=== PATIENT | female | born 1980 | race Caucasian/White ===

== ENCOUNTER → 2017-03-05 | Outpatient (CLI) | payer OTHER ==
[~2017-03-05] MED LIST: ATARAX,VISTARIL50 MG PO; AUGMENTIN 875875 MG PO; BACTRIM DS 8001 TA1 PO; BACTRIM DS 8001 TAB PO; CARBIDOPA/LEVOD1 TA1 PO; CELEXA20 MG PO; CITALOPRAM HYDR20 MG PO; CLINDAMYCIN HC300 MG PO; GABAPENTIN300 MG PO; HYDROCODONE BIT1 T11 PO; IBU800 MG PO; IMODIUM A-D2 M2 PO; KEFLEX500 MG PO; KROGER NIC21 MG/24 H T; MOTRIN800 MG PO; NEURONTIN300 MG PO; PERCOCET 325 MG1 TA2 PO; VISTARIL25 MG PO; VISTARIL50 MG PO; ZOFRAN ODT4 MG SL; ZUBSOLV1 TA2 SL
== END | disposition home or self-care (01) ==
LOC: RESCLI 00:42
DX: G43.009 Migraine without aura, not intractable, without status migrainosus (principal); R11.2 Nausea with vomiting, unspecified; R56.9 Unspecified convulsions; F41.9 Anxiety disorder, unspecified

== ENCOUNTER → 2017-12-31 | Outpatient (CLI) | payer OTHER ==
[2017-12-31 11:12] LABS: BASO % 0.5 % (0.0-1.0); EOS # 0.1 10*3/uL (0.0-0.4); EOS % 1.5 % (1.0-4.0); HEMATOCRIT 34.5 % (37.0-47.0); HEMOGLOBIN 11.3 g/dl (12.0-16.0); LYMPH # 2.8 10*3/uL (1.3-4.4); MEAN CELL VOLUME 80.4 fl (81.0-99.0); MEAN CORPUSCULAR HGB 26.3 pg (27.0-31.0); MEAN CORPUSCULAR HGB CONC 32.8 g/dl (33.0-37.0); MEAN PLATELET VOLUME 8.9 fl (9.6-12.3); MONO # 0.5 10*3/uL (0.1-1.0); MONO % 6.2 % (3.0-9.0); NEUT # 4.4 10*3/uL (2.3-7.9); NEUT % 55.7 % (47.0-73.0); PLATELET COUNT AUTOMATED 316 10*3/uL (130-400); RED BLOOD COUNT 4.29 10*6/uL (4.10-5.10); RED CELL DISTRI WIDTH 14.5 % (0-14.5); WHITE BLOOD COUNT 7.9 10*3/uL (4.8-10.8)
[2017-12-31 11:47] LABS: ALBUMIN 3.4 gm/dl (3.1-4.5); ALKALINE PHOSPHATASE 123 U/L (45-117); BUN 11 mg/dl (7-24); CHLORIDE 103 mmol/L (98-107); CHOLESTEROL 144 mg/dL (<200); CREATININE 0.82 mg/dL (0.55-1.02); HDL CHOLESTEROL 39 mg/dl (40-60); LDL CHOLESTEROL 89 mg/dL (9-159); POTASSIUM 3.9 mmol/L (3.5-5.1); SGOT/AST 67 IU/L (3-35); SODIUM 136 mmol/L (136-145); TRIGLYCERIDES 80 mg/dl (<150); VLDL CHOLESTEROL 16 mg/dL (6-40)
[2017-12-31 11:55] LABS: SGPT/ALT 64 U/L (12-78)
[2017-12-31 12:23] LABS: VITAMIN D, 25-HYDROXY 8.8 ng/mL (30-100)
== END | disposition home or self-care (01) ==
LOC: LAB 10:44
DX: E55.9 Vitamin D deficiency, unspecified (principal); R07.9 Chest pain, unspecified; Z79.899 Other long term (current) drug therapy

== ENCOUNTER 2018-06-02 18:31 | Emergency (ER) | payer OTHER ==
[~2018-06-02] VITALS: Ht 165.1 cm; Wt 62.6 kg
[~2018-06-02 18:31] MED LIST changes: -AUGMENTIN 875875 MG PO; -BACTRIM DS 8001 TA1 PO; -BACTRIM DS 8001 TAB PO; -CARBIDOPA/LEVOD1 TA1 PO; -CELEXA20 MG PO; -CITALOPRAM HYDR20 MG PO; -CLINDAMYCIN HC300 MG PO; -GABAPENTIN300 MG PO; -HYDROCODONE BIT1 T11 PO; -IBU800 MG PO; -KEFLEX500 MG PO; -KROGER NIC21 MG/24 H T; -MOTRIN800 MG PO; -NEURONTIN300 MG PO; -PERCOCET 325 MG1 TA2 PO; -ZUBSOLV1 TA2 SL
[2018-06-02 18:58] LABS: BILIRUBIN NEGATIVE (NEGATIVE); BLOOD NEGATIVE (NEGATIVE); CLARITY CLEAR (CLEAR); COLOR YELLOW (YELLOW); GLUCOSE NEGATIVE (NEGATIVE); KETONE TRACE (NEGATIVE); LEUKO ESTERASE TRACE (NEGATIVE); NITRITE NEGATIVE (NEGATIVE); SPECIFIC GRAVITY >= 1.030 (1.005-1.030); UROBILINOGEN 0.2 E.U./dl (0.2-1.0)
[2018-06-02 19:09] LABS: BACTERIA 1+; WBC 21-30 wbc/hpf (0-5)
== END 2018-06-02 19:28 | disposition home or self-care (01) ==
LOC: ED 18:31
PROVIDERS: Physician Assistant
DX: Z11.3 Encounter for screening for infections with a predominantly sexual mode of transmission (principal); A59.8 Trichomoniasis of other sites; F17.200 Nicotine dependence, unspecified, uncomplicated; F12.90 Cannabis use, unspecified, uncomplicated; Z98.51 Tubal ligation status; Z88.6 Allergy status to analgesic agent; Z79.899 Other long term (current) drug therapy

== ENCOUNTER 2020-04-20 16:06 | Emergency (ER) | payer OTHER ==
[~2020-04-20] VITALS: Wt 72.6 kg
[~2020-04-20 16:06] MED LIST changes: +AUGMENTIN 875875 MG PO; +BACTRIM DS 8001 TA1 PO; +BACTRIM DS 8001 TAB PO; +CARBIDOPA/LEVOD1 TA1 PO; +CELEXA20 MG PO; +CITALOPRAM HYDR20 MG PO; +CLINDAMYCIN HC300 MG PO; +GABAPENTIN300 MG PO; +HYDROCODONE BIT1 T11 PO; +IBU800 MG PO; +KEFLEX500 MG PO; +KROGER NIC21 MG/24 H T; +MOTRIN800 MG PO; +NEURONTIN300 MG PO; +PERCOCET 325 MG1 TA2 PO; +ZUBSOLV1 TA2 SL
[2020-04-20 16:14] VITALS: BP 132/110
== END 2020-04-20 16:55 | disposition left against medical advice (07) ==
LOC: ED 16:06
DX: T40.601A Poisoning by unspecified narcotics, accidental (unintentional), initial encounter (principal); F32.9 Major depressive disorder, single episode, unspecified; F41.9 Anxiety disorder, unspecified; Z88.8 Allergy status to other drugs, medicaments and biological substances; Z79.899 Other long term (current) drug therapy; Y92.89 Other specified places as the place of occurrence of the external cause

== ENCOUNTER → 2020-07-28 | Outpatient (CLI) | payer OTHER ==
[2020-07-30 00:08] LABS: HCV LOG10 7.097 (.); HCV RNA (INTERNATION UNIT) 12500000 IU/mL (.); HEPATITIS C QUANTITATION See Final Results IU/mL (.)
== END | disposition home or self-care (01) ==
LOC: LAB 13:27
PROVIDERS: ATTEND Nurse Practitioner Primary Care
DX: R76.8 Other specified abnormal immunological findings in serum (principal)

== ENCOUNTER → 2020-08-12 | Outpatient (CLI) | payer OTHER | END | disposition home or self-care (01) | LOC: US 09:28 | PROVIDERS: ATTEND Nurse Practitioner Primary Care | DX: R10.13 Epigastric pain (principal); R14.0 Abdominal distension (gaseous); R19.7 Diarrhea, unspecified ==

== ENCOUNTER 2020-08-24 15:11 | Emergency (ER) | payer OTHER ==
[2020-08-24 15:11] VITALS: BP 139/94
[2020-08-24 15:59] LABS: BILIRUBIN Negative (Negative); BLOOD Negative (Negative); CLARITY Clear (Clear); COLOR Yellow (Yellow); GLUCOSE Negative (Negative); KETONE Negative (Negative); LEUKO ESTERASE Negative (Negative); NITRITE Negative (Negative); PH 5.5 (4.5-8.0); SPECIFIC GRAVITY <= 1.005 (1.001-1.030); UROBILINOGEN 0.2 E.U./dl (0.0-1.0)
[2020-08-24 16:07] LABS: URINE AMPHETAMINES > 1000 (1000ng/ml); URINE BARBITURATES < 200 (200ng/ml); URINE BENZODIAZEPINES < 200 (200ng/ml); URINE CANNABINOIDS (THC) > 50 (50ng/ml); URINE COCAINE < 300 (300ng/ml); URINE METHADONE < 300 (300ng/ml); URINE OPIATES < 300 (300ng/ml)
[2020-08-24 16:12] LABS: WBC 0-2 wbc/hpf (0-5)
[2020-08-24 16:13] LABS: URINE PHENCYCLIDINE < 25 (25ng/ml)
[2020-08-24] MEDS ORDERED: LAMOTRIGINE200 MG PO (16:45)
== END 2020-08-24 17:08 | disposition home or self-care (01) ==
LOC: ED 15:11
PROVIDERS: Physician Assistant
DX: Z76.0 Encounter for issue of repeat prescription (principal); F32.9 Major depressive disorder, single episode, unspecified; F41.9 Anxiety disorder, unspecified; Z88.8 Allergy status to other drugs, medicaments and biological substances

== ENCOUNTER 2020-08-29 11:11 | Emergency (ER) | payer OTHER ==
[~2020-08-29] VITALS: Ht 165.1 cm; Wt 74.4 kg
[~2020-08-29 11:11] MED LIST changes: +LAMOTRIGINE200 MG PO
[2020-08-29 11:23] VITALS: BP 151/93
[2020-08-29] MEDS ORDERED: DOXYCYCLINE100 M3 PO (12:02)
[2020-08-29 12:51] LABS: BILIRUBIN Negative (Negative); BLOOD Negative (Negative); CLARITY Clear (Clear); COLOR Yellow (Yellow); GLUCOSE Negative (Negative); KETONE Negative (Negative); LEUKO ESTERASE Negative (Negative); NITRITE Negative (Negative); SPECIFIC GRAVITY <= 1.005 (1.001-1.030)
[2020-08-29 13:01] LABS: EPITHELIAL CELLS 16-20; RBC 0-2 rbc/hpf (0-2); WBC 0-2 wbc/hpf (0-5)
== END 2020-08-29 13:27 | disposition home or self-care (01) ==
LOC: ED 11:11
PROVIDERS: Physician Assistant
DX: N89.8 Other specified noninflammatory disorders of vagina (principal); Z20.2 Contact with and (suspected) exposure to infections with a predominantly sexual mode of transmission; Z88.6 Allergy status to analgesic agent; Z87.891 Personal history of nicotine dependence

== ENCOUNTER 2023-01-31 14:20 | Emergency (ER) | payer OTHER ==
[~2023-01-31] VITALS: Ht 165.1 cm; Wt 54.4 kg
[~2023-01-31 14:20] MED LIST changes: +DOXYCYCLINE100 M3 PO
[2023-01-31 14:37] VITALS: BP 129/85
[2023-01-31 15:29] LABS: BASO % 0.4 % (0.0-1.0); EOS # 0.1 10*3/uL (0.0-0.4); EOS % 1.1 % (1.0-4.0); HEMATOCRIT 32.4 % (37.0-47.0); LYMPH # 1.6 10*3/uL (1.3-4.4); LYMPH % 19.7 % (27.0-41.0); MEAN CELL VOLUME 76.1 fl (81.0-99.0); MEAN CORPUSCULAR HGB 23.5 pg (27.0-31.0); MEAN CORPUSCULAR HGB CONC 30.9 g/dl (33.0-37.0); MEAN PLATELET VOLUME 9.2 fl (9.6-12.3); MONO # 0.5 10*3/uL (0.1-1.0); MONO % 6.1 % (3.0-9.0); NEUT # 5.9 10*3/uL (2.3-7.9); NEUT % 70.9 % (47.0-73.0); PLATELET COUNT AUTOMATED 259 10*3/uL (130-400); RED BLOOD COUNT 4.26 10*6/uL (4.10-5.10); RED CELL DISTRI WIDTH 17.6 % (0-14.5); WHITE BLOOD COUNT 8.2 10*3/uL (4.8-10.8)
[2023-01-31 15:43] LABS: ACT PARTIAL THROMBO TIME 29.6 SECONDS (20.0-32.1)
[2023-01-31 15:50] LABS: ALKALINE PHOSPHATASE 52 U/L (46-116); BETA-HCG, QUANT < 3.0 mIU/mL (0-10); BUN 7 mg/dl (9-23); CHLORIDE 101 mmol/L (98-107); LIPASE 15 U/L (12-53); POTASSIUM 3.8 mmol/L (3.4-5.1); SGPT/ALT 21 U/L (10-49); TOTAL PROTEIN 4.3 gm/dL (6.0-8.0)
[2023-01-31 15:57] LABS: ETHYL ALCOHOL < 3.0 mg/dl (<3)
== END 2023-01-31 17:07 ==
LOC: ED
PROVIDERS: Emergency Medicine
DX: M25.552 Pain in left hip (principal); Z88.6 Allergy status to analgesic agent; Z98.51 Tubal ligation status; W18.39XA Other fall on same level, initial encounter; Y93.89 Activity, other specified; Y92.89 Other specified places as the place of occurrence of the external cause; Y99.8 Other external cause status

== ENCOUNTER 2025-04-14 22:29 | Emergency (ER) | payer OTHER ==
[~2025-04-14] VITALS: Ht 152.4 cm; Wt 70.1 kg
[2025-04-14 22:53] VITALS: BP 139/102
[2025-04-14 22:58] LABS: BILIRUBIN Negative (Negative); BLOOD Negative (Negative); CLARITY Clear (Clear); COLOR Yellow (Yellow); GLUCOSE Negative (Negative); KETONE Negative (Negative); LEUKO ESTERASE Negative (Negative); NITRITE Negative (Negative); SPECIFIC GRAVITY <= 1.005 (1.001-1.030); UROBILINOGEN 0.2 E.U./dl (0.0-1.0)
[2025-04-14 23:07] LABS: URINE AMPHETAMINES Positive (1000ng/ml); URINE BARBITURATES Negative (200ng/ml); URINE BENZODIAZEPINES Negative (200ng/ml); URINE CANNABINOIDS (THC) Positive (50ng/ml); URINE COCAINE Positive (300ng/ml); URINE METHADONE Negative (300ng/ml); URINE OPIATES Negative (300ng/ml); URINE PHENCYCLIDINE Negative (25ng/ml)
[2025-04-14 23:14] LABS: BASO # 0.1 10*3/uL (0.0-0.1); BASO % 0.7 % (0.0-1.0); EOS # 0.2 10*3/uL (0.0-0.4); EOS % 1.8 % (1.0-4.0); HEMATOCRIT 35.6 % (37.0-47.0); MEAN CELL VOLUME 83.2 fl (81.0-99.0); MEAN CORPUSCULAR HGB 27.1 pg (27.0-31.0); MEAN CORPUSCULAR HGB CONC 32.6 g/dl (33.0-37.0); MEAN PLATELET VOLUME 9.5 fl (9.6-12.3); MONO # 0.7 10*3/uL (0.1-1.0); MONO % 8.4 % (3.0-9.0); NEUT # 4.8 10*3/uL (2.3-7.9); NEUT % 59.7 % (47.0-73.0); PLATELET COUNT AUTOMATED 306 10*3/uL (130-400); RED BLOOD COUNT 4.28 10*6/uL (4.10-5.10); RED CELL DISTRI WIDTH 13.4 % (0-14.5); WHITE BLOOD COUNT 8.1 10*3/uL (4.8-10.8)
[2025-04-14 23:20] LABS: RBC 0-2 rbc/hpf (0-2); WBC 0-2 wbc/hpf (0-5)
[2025-04-14 23:38] LABS: ALKALINE PHOSPHATASE 116 U/L (46-116); BUN 12 mg/dl (9-23); CHLORIDE 104 mmol/L (98-107); ETHYL ALCOHOL 55.3 mg/dl (<3); POTASSIUM 2.9 mmol/L (3.4-5.1); SGPT/ALT 18 U/L (5-49); TOTAL PROTEIN 7.5 gm/dL (6.0-8.0)
[2025-04-15] MEDS ORDERED: POTASSIUM CHLORIDE 20 MEQ TAB PO ONE (09:40)
[2025-04-15] MEDS ORDERED: POTASSIUM CHLO20 ME3 PO (09:41)
== END 2025-04-15 10:02 | disposition home or self-care (01) ==
LOC: ED 22:29
PROVIDERS: Emergency Medicine
DX: F60.3 Borderline personality disorder (principal); F19.10 Other psychoactive substance abuse, uncomplicated; R45.851 Suicidal ideations; E87.6 Hypokalemia; F43.20 Adjustment disorder, unspecified; Z88.8 Allergy status to other drugs, medicaments and biological substances; Z79.899 Other long term (current) drug therapy; Z98.51 Tubal ligation status; Z87.891 Personal history of nicotine dependence; Z20.822 Contact with and (suspected) exposure to COVID-19

== ENCOUNTER 2025-06-08 14:23 | Emergency (ER) | payer OTHER ==
[~2025-06-08] VITALS: Wt 68.0 kg
[2025-06-08 14:23] VITALS: BP 0/0
[~2025-06-08 14:23] MED LIST changes: +POTASSIUM CHLO20 ME3 PO
[2025-06-08] MEDS ORDERED: EPINEPHrine Hydrochloride 1 MG/10 ML SYR IV ONE (14:47)
[2025-06-08] MEDS ORDERED: SODIUM BICARBONATE 50 MEQ/50 ML SYR IV ONE (14:47)
== END 2025-06-08 14:40 ==
LOC: ED 14:23
DX: I46.9 Cardiac arrest, cause unspecified (principal); F32.A Depression, unspecified; F41.9 Anxiety disorder, unspecified; F17.200 Nicotine dependence, unspecified, uncomplicated; F12.90 Cannabis use, unspecified, uncomplicated; Z79.899 Other long term (current) drug therapy; Z88.8 Allergy status to other drugs, medicaments and biological substances; Z98.51 Tubal ligation status; Z98.890 Other specified postprocedural states